=== PATIENT | male | born 1945 | race Caucasian/White ===

== ENCOUNTER 2019-12-18 07:55 | Emergency (ER) | payer MEDICARE ==
[~2019-12-18] VITALS: Ht 193 cm; Wt 90.7 kg
[2019-12-18] MEDS ORDERED: NO HOME MEDS (08:05)
--- NOTE | 2019-12-18 08:06 | NUR ---
ED Nurse Note: Pt walked in from home c/o right elbow pain since last night. Pt said he was walking in the dark when he tripped. Pt denies head trauma. Respirations even and unlabored on room air. Vitals stable as documented.
[2019-12-18 08:08] VITALS: BP 117/79
--- NOTE | 2019-12-18 08:19 | Emergency Room Report ---
History of Present Illness General Chief Complaint: Upper Extremity Injury Source: Patient Present Illness HPI 74-year-old male presents with right upper extremity pain after a fall. Patient was walking and fell down some stairs. He states he landed on his right elbow. Complaining of 8 out of 10 right elbow pain worse with palpation. Denies any head or neck trauma. He denies any head or neck pain. Denies any other injuries at this time. Patient denies any medical history and is currently not on any medications. Allergies: Coded Allergies: CODEINE (Verified Allergy, Unknown, 12/18/19) Patient History Past Medical History: see triage record Reviewed Nursing Documentation: PMH: Agreed; PSxH: Agreed Nursing Documentation-PMH Past Medical History: No Stated History Review of Systems All Other Systems: negative except mentioned in HPI Physical Exam Vital Signs Date Time Temp Pulse Resp B/P (MAP) Pulse Ox O2 Delivery O2 Flow Rate FiO2 12/18/19 08:00 97.5 91 16 117/79 (92) 100 Room Air Sp02 EP Interpretation: reviewed, normal General Appearance: well appearing, no apparent distress Head: normocephalic, atraumatic Eyes: bilateral eye PERRL, bilateral eye EOMI ENT: hearing grossly normal, moist mucus membranes Neck: full range of motion, supple, other - No midline tenderness Respiratory: lungs clear, normal breath sounds, no rhonchi, no respiratory distress, no retraction, no wheezing Cardiovascular #1: normal peripheral pulses, regular rate, rhythm, no murmur Gastrointestinal: non tender, soft, non-distended, no guarding Musculoskeletal: normal inspection, back normal, other - Right elbow mildly tender to palpation with full range of motion. No obvious deformity, 2+ pulses distally, Neurologic: alert, oriented x3, no focal defects Skin: normal color, warm/dry Medical Decision Making ER Course Differential diagnosis included but not limited to elbow contusion, elbow sprain , versus fracture. Low suspicion for serious traumatic injury such as fracture of the spinal column or solid organ injury. Ibuprofen given in the ER. X-ray completed and showed no acute fracture dislocation. I suspect a sprain versus contusion. And placed in a sling, was neurovascularly intact, stable for discharge. Patient is from out of town and will follow-up with his primary doctor upon return home. Other X-Ray Diagnostic Results Other X-Ray Diagnostic Results : X-Ray ordered: Right elbow # of Views/Limited Vs Complete: 3 View Indication: Pain Interpretation: no dislocation, no fractures Impression: No acute disease Electronically Signed by: Michael Rivera MD Last Vital Signs Date Time Temp Pulse Resp B/P (MAP) Pulse Ox O2 Delivery O2 Flow Rate FiO2 12/18/19 08:08 97.5 90 16 117/79 100 Room Air Disposition: HOME, SELF-CARE Condition: Stable Scripts Ibuprofen* (MOTRIN*) 600 Mg Tablet 600 MG ORAL Q8H PRN for For Pain, #30 TAB 0 Refills Prov: Michael Rivera M.D. 12/18/19 Additional Instructions: Patient is instructed to follow-up with her primary care doctor, primary care clinic or [facility] in 1 to 2 days. Patient instructed to return for any worsening symptoms or concerns. Please note that the documentation in this note was used with [employer] dictation technology. Please be advised that this may lead to erroneous text due to misinterpretation by the dictation software Michael Rivera M.D. Dec 18, 2019 08:19
--- NOTE | 2019-12-18 08:24 | NUR ---
ED Nurse Note: xray @ bedside
[2019-12-18] MEDS ORDERED: IBUPROFEN600 MG ORAL (08:45)
[2019-12-18 08:50] VITALS: BP 121/74
--- NOTE | 2019-12-18 08:50 | NUR ---
ER DISCHARGE NOTE: Pt's right elbow wrapped and arm placed in sling. Patient is cleared to be discharged per ERMD, pt is aox4, on room air, with stable vital signs as documented. pt was given dc and prescription instructions and was able to verbalize understanding, pt id band removed. pt is able to ambulate with steady gait. pt took all belongings.
--- NOTE | 2019-12-18 10:08 | Diagnostic Imaging Report ---
Indication: Right elbow pain Findings: 3 views of the right elbow were obtained. No acute fractures, malalignment, erosions or periostitis are identified. Soft tissues are unremarkable. Impression: Negative for acute injury
== END 2019-12-18 08:50 | disposition home or self-care (01) ==
LOC: EMR 08:50
DX: M25.521 Pain in right elbow (principal); W10.9XXA Fall (on) (from) unspecified stairs and steps, initial encounter; Y93.01 Activity, walking, marching and hiking; Z88.5 Allergy status to narcotic agent
CPT/HCPCS: 99283